=== PATIENT | female | born 1990 | race Caucasian/White ===

== ENCOUNTER 2017-08-18 05:50 | Day surgery (SDC) | payer BC ==
[~2017-08-18] VITALS: Ht 160 cm; Wt 52.2 kg
[2017-08-18 06:13] LABS: HCG,QUAL RESULT NEGATIVE (NEGATIVE)
[2017-08-18] MEDS ORDERED: LR 1,000 ML IV SCH (07:59)
[2017-08-18] MEDS ORDERED: MEPERIDINE HCL/PF 25 MG/ML DISP.SYRIN IVP PRN (08:00)
[2017-08-18] MEDS ORDERED: MORPHINE 4 MG/ML INJ. SYRINGE IVP PRN ×3 (08:00)
[2017-08-18] MEDS ORDERED: ACETAMINOPHEN WITH CODEINE 12.5 ML UDC PO PRN (08:15)
[2017-08-18] MEDS ORDERED: MIDAZOLAM HCL 5 MG/ML VIAL (VERSED) IV ONE (08:20)
[2017-08-18] MEDS ORDERED: DEXAMETHASONE SOD PHOSPHATE 4 MG/ML VIAL IVP ONE (08:20)
[2017-08-18] MEDS ORDERED: SUCCINYLCHOLINE CHLORIDE 20 MG/ML(QUELICIN) IVP ONE (08:20)
[2017-08-18] MEDS ORDERED: SEVOFLURANE 15 MIN GAS INH ONE (08:20)
[2017-08-18] MEDS ORDERED: LR 1,000 ML IV.SOLN IV ONE (08:20)
[2017-08-18] MEDS ORDERED: NS IRRIG SOLN 1000 ML IR ONE (08:20)
[2017-08-18] MEDS ORDERED: KETOROLAC TROMETHAMINE 30 MG VIAL IVP ONE (08:20)
[2017-08-18] MEDS ORDERED: ONDANSETRON HCL 4 MG/2 ML VIAL IVP ONE (08:20)
[2017-08-18] MEDS ORDERED: PROPOFOL 200MG/ 20ML VIAL (DIPRIVAN) IV ONE (08:20)
[2017-08-18] MEDS ORDERED: fentaNYL CITRATE 250 MCG/5 ML AMP IV ONE (08:20)
[2017-08-18 09:29] VITALS: BP_SYST 105
== END 2017-08-18 10:15 | disposition home or self-care (01) ==
LOC: SDS 05:50 → SMU 05:50 → SDS 10:15
PROVIDERS: ATTEND Otolaryngology Plastic Surgery within the Head & Neck
DX: J35.01 Chronic tonsillitis (principal); Z98.890 Other specified postprocedural states; Z88.8 Allergy status to other drugs, medicaments and biological substances
CPT/HCPCS: 42826; 84703; 88304; J0330; J1100; J1885; J2250; J2405; J2704; J3010; J7120